=== PATIENT | female | born 1990 | race Caucasian/White ===

== ENCOUNTER 2021-10-08 18:24 | Emergency (ER) | payer BC ==
[~2021-10-08] VITALS: Ht 167.6 cm; Wt 88.9 kg
[2021-10-08] MEDS ORDERED: [UNRECOGNIZED DRUG - OTHER] PO (19:23)
== END 2021-10-08 20:56 | disposition home or self-care (01) ==
LOC: ED 18:24
DX: J20.9 Acute bronchitis, unspecified (principal); Z20.822 Contact with and (suspected) exposure to COVID-19; Z88.2 Allergy status to sulfonamides; Z88.1 Allergy status to other antibiotic agents; Z79.899 Other long term (current) drug therapy
CPT/HCPCS: 71045; 80048; 85025; 94640; 99285-25; C9803; U0003

== ENCOUNTER 2024-01-19 11:14 | Inpatient (IN) | payer BC ==
[~2024-01-19] VITALS: Ht 157.5 cm; Wt 99.8 kg
[~2024-01-19 11:14] MED LIST: [UNRECOGNIZED DRUG - OTHER] PO
[2024-01-20] MEDS ORDERED: VANCOMYCIN HCL 2,000 MG in DEXTROSE 5% 500 ML IV SCH
[2024-01-20] MEDS ORDERED: LACTATED RINGER'S 1,000 ML IV SCH
[2024-01-20] MEDS ORDERED: MAGNESIUM HYDROXIDE/AL HYDROX 30 ML CUP PO PRN
[2024-01-20] MEDS ORDERED: CALCIUM CARBONATE 500 MG CHEW PO PRN
[2024-01-20 05:45] LABS: HEMOGLOBIN 11.1 g/dL (12.0-18.0); MCH 29.5 (27-36); MCHC 33.5 g/dl (30-36); MCV 88.1 fl (81-99); RBC 3.75 M/ul (4.3-5.7); RDW 13.9 (10.5-15.0)
[2024-01-20] MEDS ORDERED: OXYTOCIN/DEXTROSE 5% 20 UNITS/100 ML BAG IV SCH (05:45)
[2024-01-20 06:09] VITALS: BP 105/60
[2024-01-20] MEDS ORDERED: miSOPROStoL 25 MCG TAB PV SCH ×2 (06:15)
[2024-01-20 06:24] LABS: ABO A; ANTIBODY SCREEN NEGATIVE; RH POSITIVE
[2024-01-20 07:10] LABS: AMPHETAMINES, URINE NEGATIVE (NEGATIVE); BARBITURATES, URINE NEGATIVE (NEGATIVE); BENZODIAZEPINE, URINE NEGATIVE (NEGATIVE); BUPRENORPHINE, URINE NEGATIVE (NEGATIVE); CANNABINOID, URINE POSITIVE (NEGATIVE); COCAINE, URINE NEGATIVE (NEGATIVE); ECSTASY, URINE NEGATIVE (NEGATIVE); FENTANYL, URINE NEGATIVE (NEGATIVE); METHADONE, URINE NEGATIVE (NEGATIVE); OPIATES, URINE NEGATIVE (NEGATIVE); OXYCODONE, URINE NEGATIVE (NEGATIVE); PHENCYCLIDINE, URINE NEGATIVE (NEGATIVE)
--- NOTE | 2024-01-20 12:58 | PR ---
[facility] [address] [facility] [place], [place] [address] Signed Progress Notes IP Datetime Report Generated by CPFavio: 01/20/2024 12:58 PROGRESS NOTES: [id number] Impression: Reassuring Heart Rate Procedures: Artificial ROM; Sterile Vag Exam Plan: Continue Present Management VITAL SIGNS: [id number] Vital Signs: Reviewed; Within Normal Limits EXAM: [id number] Dilatation: 1.5 Effacement: 80 Station: -2 Contractions: q 2 to 3 min MEMBRANES: [id number] Comments: More contractions and she is starting to feel them. Will continue. FETUS A: [id number] FHR Baseline: 120 Variability: Moderate 6-25bpm Accelerations: 15X15 Decelerations: None FHR Category: Category I Presentation: Vertex FETUS B: [id number] Signing Physician: Kiana Barnes MD Copies: ~ *Electronically Signed* 01/20/24 1258 KIANA BARNES MD PATIENT NAME: ANOOP ZAPATA PROGRESS NOTE DATE OF : 86 PHYSICIAN: KIANA BARNES MD RPT #: [id number] REPORT IS CONFIDENTIAL AND NOT TO BE RELEASED WITHOUT AUTHORIZATION
[2024-01-20] MEDS ORDERED: ePHEDrine sulfate 5 MG/ML SYRINGE IV PRN (14:45)
[2024-01-20] MEDS ORDERED: LACTATED RINGER'S 500 ML IV PRN (14:45)
[2024-01-20] MEDS ORDERED: fentaNYL citrate 100 MCG/2 ML VIAL ONE (14:45)
[2024-01-20] MEDS ORDERED: LACTATED RINGER'S 2,000 ML IV ONE (14:45)
[2024-01-20] MEDS ORDERED: ROPIVACAINE 0.2% 200 ML BAG EPIDURAL SCH (14:45)
--- NOTE | 2024-01-20 16:57 | PR ---
[facility] [address] [facility] [place], [place] [address] Signed Progress Notes IP Datetime Report Generated by JONG: 01/20/2024 16:57 PROGRESS NOTES: [id number] Impression: Normal Progression of Labor Procedures: Intrauterine Pressure Catheter; Scalp Electrode; Sterile Vag Exam Plan: Continue Present Management Other Plans: consider augmentation VITAL SIGNS: [id number] Vital Signs: Reviewed; Within Normal Limits EXAM: [id number] Dilatation: 4.0 Effacement: 100 Station: -2 Contractions: difficult to shrimp picker MEMBRANES: [id number] Comments: Progressing. IUPC placed as contractions not picking up well. Some decels which are improving with position changes. I suspect pit augment will be needed. Will sign off to Dr. Muñoz for ongoing care. FETUS A: [id number] FHR Baseline: 120 Variability: Moderate 6-25bpm Accelerations: 15X15 Decelerations: Early; Late; Variable FHR Category: Category II Presentation: Vertex FETUS B: [id number] Signing Physician: Kiana Barnes MD Copies: ~ *Electronically Signed* 01/20/24 1657 KIANA BARNES MD PATIENT NAME: ANOOP ZAPATA PROGRESS NOTE DATE OF : 86 PHYSICIAN: KIANA BARNES MD RPT #: [id number] REPORT IS CONFIDENTIAL AND NOT TO BE RELEASED WITHOUT AUTHORIZATION
[2024-01-20] MEDS ORDERED: diphenhydrAMINE HCL 50 MG/ML VIAL IV PRN (18:30)
[2024-01-20] MEDS ORDERED: OXYTOCIN/0.9 % SODIUM CHLORIDE 500 ML IV SCH (18:30)
[2024-01-20] MEDS ORDERED: ePHEDrine KIT FOR FBC IV ONE (19:22)
--- NOTE | 2024-01-20 21:57 | PR ---
[facility] [address] [place], [place] [address] Signed Progress Notes IP Datetime Report Generated by CPN: 01/20/2024 21:57 PROGRESS NOTES: [id number] Impression: Normal Progression of Labor Procedures: Intrauterine Pressure Catheter; Sterile Vag Exam Plan: Continue Present Management Other Plans: consider augmentation Informed Consent Obtain: Vaginal Delivery VITAL SIGNS: [id number] Vital Signs: Reviewed; Within Normal Limits EXAM: [id number] Dilatation: 6.0 Effacement: 100 Station: -2 Contractions: Q 2-4 min MEMBRANES: [id number] Comments: Assuming care note. History and H_P reviewed. Called to hospital to evaluate patient after late deceleration of 3 minutes down into the 80s with recover and repeated deceleration into the 90s. Upon arrival FHT had resolved with baseline in the 130s. IUPC stopped working earlier and replaced at this time. Patient resting comfortably in bed without complaints. Epidural in place. A/P: Continue labor management. Will restart pitocin once FHT is favorable. FETUS A: [id number] FHR Baseline: 120 Variability: Moderate 6-25bpm Accelerations: 15X15 Decelerations: Late; Variable FHR Category: Category II Presentation: Vertex FETUS B: [id number] Signing Physician: Angélica Espinoza MD Copies: ~ *Electronically Signed* 01/20/24 9469 ANGÉLICA ESPINOZA MD PATIENT NAME: ANOOP ZAPATA PROGRESS NOTE DATE OF : 86 PHYSICIAN: ANGÉLICA ESPINOZA MD RPT #: [id number] REPORT IS CONFIDENTIAL AND NOT TO BE RELEASED WITHOUT AUTHORIZATION
[2024-01-21] MEDS ORDERED: OXYCODONE HCL 5 MG TAB PO PRN (02:45)
[2024-01-21] MEDS ORDERED: IBUPROFEN 600 MG TAB PO PRN (02:45)
[2024-01-21] MEDS ORDERED: ACETAMINOPHEN 325 MG TAB PO PRN (02:45)
[2024-01-21] MEDS ORDERED: CALCIUM CARBONATE 500 MG CHEW PO PRN (02:45)
[2024-01-21] MEDS ORDERED: MAGNESIUM HYDROXIDE/AL HYDROX 30 ML CUP PO PRN (02:45)
[2024-01-21] MEDS ORDERED: HYDROCODONE/ACETA 5/325 TAB PO PRN (02:45)
[2024-01-21] MEDS ORDERED: OXYTOCIN/0.9 % SODIUM CHLORIDE 500 ML IV SCH (02:45)
[2024-01-21] MEDS ORDERED: DEXTROSE 5% IV ONE ×2 (02:45→03:30)
[2024-01-21] MEDS ORDERED: MAGNESIUM HYDROXIDE 30 ML UDC PO PRN (02:45)
[2024-01-21] MEDS ORDERED: GENTAMICIN SULFATE IV ONE ×2 (02:45→03:30)
[2024-01-21] MEDS ORDERED: WITCH HAZEL/GLYCERIN 1 EA PAD TOP PRN (02:45)
[2024-01-21] MEDS ORDERED: HYDROCORTISONE ACETATE 25 MG SUPP PR PRN (02:45)
[2024-01-21] MEDS ORDERED: BENZOCAINE/LANOLIN/ALOE VERA 60 ML AEROSOL TOP PRN (02:45)
[2024-01-21] MEDS ORDERED: VANCOMYCIN HCL 2,000 MG in DEXTROSE 5% 500 ML IV SCH (03:00)
[2024-01-21] MEDS ORDERED: diphenhydrAMINE HCL 50 MG/ML VIAL IV PRN (03:15)
[2024-01-21] MEDS ORDERED: GENTAMICIN SULFATE 80 MG/2 ML VIAL ONE (03:25)
[2024-01-21] MEDS ORDERED: SENNOSIDES/DOCUSATE 1 EA TAB PO SCH (09:00)
[2024-01-22 05:38] LABS: HEMATOCRIT 31.8 % (35.0-50.0); HEMOGLOBIN 10.5 g/dL (12.0-18.0); MCH 29.4 (27-36); MCHC 33.1 g/dl (30-36); MCV 88.9 fl (81-99); RBC 3.58 M/ul (4.3-5.7); RDW 14.4 (10.5-15.0)
--- NOTE | 2024-01-22 09:50 | PR ---
[facility] [address] [facility] [place], [place] [address] Signed PP Progress Notes Datetime Report Generated by CPN: 01/22/2024 09:50 SUBJECTIVE: [id number] Pain: Within Normal Limits Vital Signs: [id number] Vital Signs: Reviewed; Within Normal Limits EXAM: Ongoing Cardiovascular: Not Done Respiratory: Not Done Abdomen/Uterus: Abnormal Lochia: Normal Vulva/Perineum: Not Done Breasts: Not Done CVA Tenderness: Not Done Extremities: Normal Incision: Not Applicable Progress: Normal Exam Comments: Fundus firm, NT @ U-2. H/H 10.5/31.8, WBC 12.8, plat 240k IMPRESSION/PLAN/PROCEDURES: [id number] Impression: Normal Progression Plan: Discharge Procedures: Antibiotics Progress Notes: Doing well. She desires discharge. There is no evidence of ongoing infection. Signing Physician: Kiana Barnes MD Copies: ~ *Electronically Signed* 01/22/24 0950 KIANA BARNES MD PATIENT NAME: ANOOP ZAPATA PROGRESS NOTE DATE OF : 86 PHYSICIAN: KIANA BARNES MD RPT #: [id number] REPORT IS CONFIDENTIAL AND NOT TO BE RELEASED WITHOUT AUTHORIZATION
== END 2024-01-22 12:00 | disposition home or self-care (01) | DRG 805 ==
LOC: FBC 11:14
PROVIDERS: Obstetrics & Gynecology; ADMIT Obstetrics & Gynecology; ATTEND Obstetrics & Gynecology
PROC: 10E0XZZ Delivery of Products of Conception, External Approach (ICD-10-PCS; principal; 2024-01-21)
PROC: 10H07YZ Insertion of Other Device into Products of Conception, Via Natural or Artificial Opening (ICD-10-PCS; 2024-01-21)
PROC: 3E0R3BZ Introduction of Anesthetic Agent into Spinal Canal, Percutaneous Approach (ICD-10-PCS; 2024-01-21)
PROC: 00HU33Z Insertion of Infusion Device into Spinal Canal, Percutaneous Approach (ICD-10-PCS; 2024-01-21)
PROC: 10907ZC Drainage of Amniotic Fluid, Therapeutic from Products of Conception, Via Natural or Artificial Opening (ICD-10-PCS; 2024-01-21)
PROC: 0UQMXZZ Repair Vulva, External Approach (ICD-10-PCS; 2024-01-21)
DX: O99.824 Streptococcus B carrier state complicating childbirth (principal); O41.1230 Chorioamnionitis, third trimester, not applicable or unspecified; Z37.0 Single live birth; O76 Abnormality in fetal heart rate and rhythm complicating labor and delivery; O99.324 Drug use complicating childbirth; Z3A.39 39 weeks gestation of pregnancy; F12.90 Cannabis use, unspecified, uncomplicated; O70.0 First degree perineal laceration during delivery
CPT/HCPCS: 01960; 36415; 80307; 85027; 86850; 86900; 86901; A9270; J1200; J1580; J3370; J7060; J7121

== ENCOUNTER 2024-10-28 07:16 | Emergency (ER) | payer BC ==
[~2024-10-28] VITALS: Ht 152.4 cm; Wt 92.5 kg
[2024-10-28] MEDS ORDERED: ondansetron HCL 4 MG/2 ML VIAL IV ONE (07:30)
[2024-10-28] MEDS ORDERED: ALBUTEROL/IPRATROPIUM 3 ML NEB INH ONE (07:30)
[2024-10-28] MEDS ORDERED: SODIUM CHLORIDE 0.9% 1,000 ML IV ONE (07:30)
[2024-10-28 07:43] LABS: BASOPHILS 0.3 % (0-2); EOSINOPHILS 0.1 % (0-6); HEMATOCRIT 43.6 % (35.0-50.0); HEMOGLOBIN 14.5 g/dL (12.0-18.0); LYMPHOCYTES 3.5 % (24-44); MCH 28.5 (27-36); MCHC 33.2 g/dl (30-36); MCV 85.6 fl (81-99); MONOCYTES 1.9 % (0-12); NEUTROPHILS 94.2 % (39-80); PLATELET COUNT 273 K/uL (140-440); RBC 5.09 M/ul (4.3-5.7); RDW 14.1 (10.5-15.0)
[2024-10-28 07:55] LABS: ALBUMIN 3.6 g/dL (3.4-5.0); ALBUMIN/GLOBULIN RATIO 0.86 (1.1-2.4); BILIRUBIN, TOTAL 0.3 ng/dL (0.2-1.0); BUN/CREATININE RATIO 16.47 (6.0-28.6); CALCIUM 8.6 mg/dL (8.5-10.1); CREATININE, SERUM 0.85 mg/dL (0.55-1.02); MAGNESIUM 1.8 mg/dL (1.8-2.4); PROTEIN, TOTAL 7.8 g/dL (6.4-8.2)
[2024-10-28] MEDS ORDERED: ACETAMINOPHEN 500 MG TAB PO ONE (08:30)
[2024-10-28] MEDS ORDERED: ONDANSETRON ODT8 MG PO (08:36)
[2024-10-28 08:47] VITALS: BP 115/68
== END 2024-10-28 08:48 | disposition home or self-care (01) ==
LOC: ED 07:16
PROVIDERS: Emergency Medicine
DX: K52.9 Noninfective gastroenteritis and colitis, unspecified (principal); C81.9A Hodgkin lymphoma, unspecified, in remission; Z87.891 Personal history of nicotine dependence; Z88.2 Allergy status to sulfonamides; Z88.1 Allergy status to other antibiotic agents
CPT/HCPCS: 36415; 80053; 83735; 84703; 85025; 94640; 96361; 96374; 99284-25; A9270; J2405; J7030